=== PATIENT | female | born 1995 | race Caucasian/White ===

== ENCOUNTER 2019-01-29 16:06 | Emergency (ER) | payer OTHER ==
[~2019-01-29] VITALS: Ht 172.7 cm; Wt 52.2 kg
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
[2019-01-29] MEDS ORDERED: KETOROLAC TROMETHAMINE INJ 60 MG/2 ML VIAL IM ONE (17:00)
[2019-01-29] MEDS ORDERED: TDAP [DIPH/PERTUSSIS/TET] 0.5 ML VIAL IM ONE ×2 (17:00→17:08)
[2019-01-29] MEDS ORDERED: BACITRACIN ZINC OINT PACKET 1 EA PACKET TP ONE ×2 (17:00→17:23)
[2019-01-29] MEDS ORDERED: KETOROLAC TROMETHAMINE INJ 30 MG/ML VIAL ONE (17:08)
[2019-01-29] MEDS ORDERED: IBUPROFEN 600 MG TABLET PO ONE ×2 (17:22→17:30)
--- NOTE | 2019-01-29 18:00 | NUR ---
Patient discharged to home in stable condition. Written and verbal after care instructions given. Patient verbalizes understanding of instruction.
[2019-01-29 18:11] VITALS: BP 113/65
== END 2019-01-29 18:12 | disposition home or self-care (01) ==
LOC: ER 16:10
DX: S16.1XXA Strain of muscle, fascia and tendon at neck level, initial encounter (principal); S20.212A Contusion of left front wall of thorax, initial encounter; S30.1XXA Contusion of abdominal wall, initial encounter; S40.812A Abrasion of left upper arm, initial encounter; R51 Headache; V49.49XA Driver injured in collision with other motor vehicles in traffic accident, initial encounter; Y93.89 Activity, other specified; Y92.413 State road as the place of occurrence of the external cause; Y99.8 Other external cause status
CPT/HCPCS: 71045-TC; 73060-TC; 84703-TC; 90715; J1885